=== PATIENT | female | born 1980 | race Caucasian/White ===

== ENCOUNTER 2016-11-08 21:39 | Emergency (ER) | payer OTHER, MEDICAID ==
[2016-11-08 21:32] VITALS: BP 139/103; BMI 47.2
--- NOTE | 2016-11-08 23:48 | DR.GENAD ---
HPI - PCP Primary Care Physician: gerardo hudson - Complaint/Symptoms Chief Complaint:: pt states" i have a abcess on the lip of my lady parts its been there for 2 months but it started hurting me after sex this morning" - Source History Provided: Patient - Mode of Arrival Mode of Arrival: Ambulatory - Timing Onset of Chief Complaint: 09/09/16 PMH - PMH Past Medical History: Yes Past Medical History: Anxiety, Depression, Hypertension, Hypothyroidism, Seizures Past Surgical History: Yes Surgical History: Appendectomy, Weight Loss Surgery - Family History History of Family Medical Conditions: Yes Family Medical History: Diabetes Mellitus, Cancer, Coronary Artery Disease, Heart Failure, Hypertension - Social History Alcohol Use: None Do you use any recreational Drugs:: No Lives With: Family Lives Where: Home - infectious screening In the last 2 months have you had wt loss of >10#?: NO Have you had fever, night sweats or hemotysis?: No Have you traveled outside the country in the last 6 months?: No Isolation: Standard ROS - Review of Systems Constitutional: No Symptoms Reported Eyes: No Symptoms Reported ENTM: No Symptoms Reported Respiratoy: No Symptoms Reported Cardiovascular: No Symptoms Reported Gastrointestinal/Abdominal: No Symptoms Reported Genitourinary: No Symptoms Reported Neurological: No Symptoms Reported Musculoskeletal: No Symptoms Reported Integumentary: No Symptoms Reported Hematologic/Lymphatic: No Symptoms Reported Endocrine: No Symptoms Reported Psychiatric: No Symptoms Reported All Other Systems: Reviewed and Negative PE - Vital Signs Vitals: Temperature 98.4 F Pulse Rate 84 Respiratory Rate 18 Blood Pressure 139/103 O2 Sat by Pulse Oximetry 100 - General Limitations: No Limitations General Appearance: Alert, In No Apparent Distress - Head Head Exam: Normal Inspection, Atraumatic - Eyes Eye exam: Normal Appearance, PERRL, EOMI - ENT ENT Exam: Normal Exam External Ear Exam: Normal External Inspection TM/Canal Exam: Bilateral Normal Nose Exam: Normal Nose Exam Mouth Exam: Normal Inspection Throat Exam: Normal Inspection - Neck Neck Exam: Normal Inspection - Chest Chest Inspection: Normal Inspection - Respiratory Respiratory Exam: Normal Lung Sounds Bilat Respiratory Exam: Bilateral Clear to Auscultation - Cardiovascular Cardiovascular Exam: Regular Rate, Normal Rhythm - Abdominal Exam Abdominal Exam: Normal Inspection, Normal Bowel Sounds Abdominal Tenderness: negative: RUQ, RLQ, LUQ, LLQ, Epigastrium, Suprapubic, Diffuse, Mild, Moderate, Severe, Other - Extremities Extremities Exam: Normal Inspection - Back Back Exam: Normal Inspection - Neurologic Neurological Exam: Alert, Oriented X3, CN II-XII Intact - Psychiatric Psychiatric Exam: Normal Affect, Normal Mood - Skin Skin Exam: Warm, Dry, Intact - Other Exam Other Exam: Vaginal os, inferior right labia a tender nodule, non erythematous c/w bartholin glands cyst - Diagnosis Discharge Problem: Bartholin gland cyst - Discharge Plan Condition: Stable - Follow ups/Referrals Follow ups/Referrals: ANTOINE HUDSON [Primary Care Provider] - 3 days - Instructions
== END 2016-11-08 23:59 | disposition home or self-care (01) ==
LOC: ER 21:39
DX: N75.0 Cyst of Bartholin's gland (principal)
CPT/HCPCS: 99281

== ENCOUNTER 2017-10-26 18:14 | Emergency (ER) | payer OTHER, MEDICAID ==
[2017-10-26 18:18] VITALS: BMI 47.1
[2017-10-26] MEDS ORDERED: NS 1000 ML 1,000 ML IV ONE (18:52)
--- NOTE | 2017-10-26 18:58 | DR.GENAD ---
HPI - PCP Primary Care Physician: MICAH CARDOSOP - HPI Comment HPI Comment: Symptoms started as RUQ abd pain that has become generalized aver the past few days and radiates around to back on both sides. Little recent stool output per pt. Mother s/p colon CA and pt concerned this is what she may have. S/P hannah, s/p appy. Took some left over Bactrim at home with no improvement. Also with low grade fever and headache. - Complaint/Symptoms Chief Complaint:: PT. C/O BILATERAL FLANK PAIN THAT RADIATES TO LOWER BACK. PT. STATES SHE HAS BEEN IN THE BED FOR 5 DAYS. PT. C/O NAUSEA, FATIGUE, DECREASED APPEPTITE, AND CONSTIPATION. DENIES URNIARY SYMPTOMS. - Source History Provided: Patient - Mode of Arrival Mode of Arrival: Ambulatory - Timing Onset of Chief Complaint: 10/12/17 <THEE VERDUGO - Last Filed: 10/26/17 19:51> PMH - PMH Past Medical History: Yes Past Medical History: Anxiety, Depression, Headaches, Hypertension, Hypothyroidism, Seizures Past Surgical History: Yes Surgical History: Appendectomy, Weight Loss Surgery, Other Past Surgical History Comment: LAP BAND - Family History History of Family Medical Conditions: Yes Family Medical History: Diabetes Mellitus, Cancer, Coronary Artery Disease, Heart Failure, Hypertension - Social History Does patient currently use any type of tobacco product: Yes Have you used tobacco products in the last 12 months: Yes Type of Tobacco Use: Cigarettes Does any household member use tobacco: No Alcohol Use: None Do you use any recreational Drugs:: No Lives With: Family Lives Where: Home - infectious screening In the last 2 months have you had wt loss of >10#?: NO Have you had fever, night sweats or hemotysis?: No Have you traveled outside the country in the last 6 months?: No Isolation: Standard <THEE VERDUGO - Last Filed: 10/26/17 19:51> ROS - Review of Systems Constitutional: Fever, Malaise, Weakness, Fatigue, Loss of Appetite Eyes: No Symptoms Reported ENTM: No Symptoms Reported Respiratoy: Dry Cough Cardiovascular: No Symptoms Reported Gastrointestinal/Abdominal: See HPI, Abdominal Pain, Constipation, Nausea Genitourinary: No Symptoms Reported Neurological: No Symptoms Reported Musculoskeletal: Back Pain Integumentary: No Symptoms Reported Hematologic/Lymphatic: No Symptoms Reported Endocrine: No Symptoms Reported Psychiatric: No Symptoms Reported All Other Systems: Reviewed and Negative <THEE VERDUGO - Last Filed: 10/26/17 19:51> PE - General Limitations: No Limitations General Appearance: Alert, In No Apparent Distress - Head Head Exam: Normal Inspection - Eyes Eye exam: Normal Appearance - ENT ENT Exam: Normal Exam - Neck Neck Exam: Full ROM, Trachea Midline - Respiratory Respiratory Exam: Normal Lung Sounds Bilat. negative: Accessory Muscle Use Respiratory Exam: Bilateral Clear to Auscultation - Cardiovascular Cardiovascular Exam: Normal Rhythm, Tachycardia, Normal Heart Sounds - Abdominal Exam Abdominal Exam: Normal Bowel Sounds, Soft, Tenderness (mild generalized TTP, nothing focal). negative: Distention, Guarding, Rebound, Mass, Pulsatile Mass Abdominal Tenderness: Diffuse, Mild - Extremities Extremities Exam: Normal Inspection - Neurologic Neurological Exam: Alert, Oriented X3 - Psychiatric Psychiatric Exam: Normal Affect, Normal Mood - Skin Skin Exam: Warm. negative: Rash <THEE EVRDUGO - Last Filed: 10/26/17 19:51> - Vital Signs Vitals: Temperature 98.4 F Pulse Rate [Left Brachial] 76 Pulse Rate 110 Respiratory Rate 18 Blood Pressure [Left Arm] 134/82 Blood Pressure 141/83 O2 Sat by Pulse Oximetry 100 MDM - Differential Diagnosis Differential Diagnosis: ABDOMINAL PAIN, BILATERAL FLANK PAIN <MINDY WALTON - Last Filed: 10/27/17 01:39> Course - Treatment Treatment: SEE ORDERS. - Education/Counseling Education/Counseling: Patient, Education Educated On: Diagnosis, Needs for Follow Up <MINDY WALTON - Last Filed: 10/27/17 01:39> ROR - Labs Reviewed Laboratory Results Reviewed?: Yes Result Diagrams: 10/26/17 18:59 10/26/17 18:59 - XRAY XRAY Interpreted by: Radiologist XRAY Findings: REPORT DISCUSS WITH PATIENT. <MINDY WALTON - Last Filed: 10/27/17 01:39> - Labs Reviewed Laboratory: WBC 10.2 X10^3/uL (3.6-10.0) H 10/26/17 18:59 RBC 4.78 X10^6/uL (3.5-5.4) 10/26/17 18:59 Hgb 14.9 g/dL (12.0-16.0) 10/26/17 18:59 Hct 42.5 % (36.0-47.0) 10/26/17 18:59 MCV 89.0 fL (80.0-100.0) 10/26/17 18:59 MCH 31.1 pg (27.0-34.0) 10/26/17 18:59 MCHC 34.9 g/dL (33.0-35.0) 10/26/17 18:59 RDW 14.4 % (11.6-16.5) 10/26/17 18:59 Plt Count 383 X10^3/uL (150.0-450.0) 10/26/17 18:59 MPV 8.2 fL (7.4-11.0) 10/26/17 18:59 Neut % (Auto) 70.3 % (42.0-75.0) 10/26/17 18:59 Lymph % (Auto) 20.4 % (21.0-51.0) L 10/26/17 18:59 [place] % (Auto) 8.1 % (0.0-13.0) 10/26/17 18:59 Eos % (Auto) 0.6 % (0.9-2.9) L 10/26/17 18:59 Baso % (Auto) 0.6 % (0.2-1.0) 10/26/17 18:59 Neut # (Auto) 7.2 x10^3/uL (2.2-4.8) H 10/26/17 18:59 Lymph # (Auto) 2.1 X10^3/uL (1.3-2.9) 10/26/17 18:59 [place] # (Auto) 0.8 x10^3/uL (0.3-0.8) 10/26/17 18:59 Eos # (Auto) 0.1 x10^3/uL (0.0-0.2) 10/26/17 18:59 Baso # (Auto) 0.1 X10^3/uL (0.0-0.1) 10/26/17 18:59 Absolute Nucleated RBC 0.0 /100WBC 10/26/17 18:59 Sodium 136 mmol/L (136-145) 10/26/17 18:59 Corrected Sodium TNP 10/26/17 18:59 Potassium 3.8 mmol/L (3.5-5.1) 10/26/17 18:59 Chloride 100 mmol/L (98-107) 10/26/17 18:59 Carbon Dioxide 27.1 mmol/L (21-32) 10/26/17 18:59 BUN 10 mg/dL (7-18) 10/26/17 18:59 Creatinine 1.02 mg/dL (0.55-1.02) 10/26/17 18:59 Est GFR (MDRD) Af Amer > 60 (>60) 10/26/17 18:59 Est GFR (MDRD) Non-Af > 60 (>60) 10/26/17 18:59 Glucose 103 mg/dL (65-99) H 10/26/17 18:59 Calcium 8.7 mg/dL (8.5-10.1) 10/26/17 18:59 Corrected Calcium TNP 10/26/17 18:59 Magnesium 1.8 mg/dL (1.7-2.9) 10/26/17 18:59 Total Bilirubin 0.50 mg/dL (0.2-1.0) 10/26/17 18:59 AST 14 Units/L (15-37) L 10/26/17 18:59 ALT 21 Units/L (12-78) 10/26/17 18:59 Alkaline Phosphatase 90 Units/L (46-116) 10/26/17 18:59 Total Protein 7.8 g/dL (6.4-8.2) 10/26/17 18:59 Albumin 3.9 g/dL (3.4-5.0) 10/26/17 18:59 Globulin 3.9 g/dL (2.5-4.5) 10/26/17 18:59 Albumin/Globulin Ratio 1.0 Ratio (1.1-2.1) L 10/26/17 18:59 Amylase 38 Units/L (25-115) 10/26/17 18:59 Lipase 85 Units/L (73-393) 10/26/17 18:59 HCG, Qual Negative <10 mIU/mL 10/26/17 18:59 Specimen Type Clean catch urine 10/26/17 19:25 Urine Color Yellow (YELLOW) 10/26/17 19:25 Urine Appearance Clear (CLEAR) 10/26/17 19:25 Urine pH 6.0 (5.0 - 8.0) 10/26/17 19:25 Ur Specific [place] 1.025 (1.000-1.030) 10/26/17 19:25 Urine Protein Negative (NEGATIVE) 10/26/17 19:25 Urine Glucose (UA) Negative (NEGATIVE) 10/26/17 19:25 Urine Ketones Negative (NEGATIVE) 10/26/17 19:25 Urine Occult Blood 2+ (NEGATIVE) 10/26/17 19:25 Urine Nitrite Negative (NEGATIVE) 10/26/17 19:25 Urine Bilirubin Negative (NEGATIVE) 10/26/17 19:25 Urine Urobilinogen Normal (NORMAL) 10/26/17 19:25 Ur Leukocyte Esterase Negative (NEGATIVE) 10/26/17 19:25 Urine RBC 2-4 /HPF (NONE SEEN) 10/26/17 19:25 Urine WBC 1-3 /HPF (NONE SEEN) 10/26/17 19:25 Ur Squamous Epith Cells Moderate /HPF (NEGATIVE) 10/26/17 19:25 Urine Bacteria Trace /HPF (NEGATIVE) 10/26/17 19:25 Urine Mucus Few /HPF (NEGATIVE) 10/26/17 19:25 Ur Culture Indicated? No/not indicated 10/26/17 19:25 <THEE VERDUGO - Last Filed: 10/26/17 19:51> <MINDY WALTON - Last Filed: 10/27/17 01:39> - Diagnosis Discharge Problem: Back pain, Pain, flank, bilateral, Abdominal pain - Discharge Plan Disposition: HOME, SELF-CARE Condition: Stable Prescriptions: Cyclobenzaprine HCl [FLEXERIL 10 MG *] 10 mg PO TID PRN #20 tab PRN Reason: Ibuprofen [MOTRIN TAB 600 MG *] 600 mg PO TID PRN #30 tab PRN Reason: Pain/Inflammation - Follow ups/Referrals Follow ups/Referrals: ANTOINE STOUT [Primary Care Provider] - 3 days - Instructions Instructions: Abdominal Pain, Adult, [id number], Musculoskeletal Pain, Flank Pain, [id number], Back Pain, Adult, [id number] Additional Instructions: RETURN TO ED IF WORSE.
[2017-10-26] MEDS ORDERED: ZOFRAN INJ 4 MG VIAL IVP ONE (19:02)
[2017-10-26] MEDS ORDERED: TORADOL 30 MG VIAL IVP ONE (19:03)
[2017-10-26] MEDS ORDERED: NS 1000 ML 1,000 ML ONE (19:05)
[2017-10-26] MEDS ORDERED: ZOFRAN INJ 4 MG VIAL ONE (19:06)
[2017-10-26] MEDS ORDERED: TORADOL 30 MG VIAL ONE (19:06)
[2017-10-26 19:15] LABS: BASOPHILS # (AUTO) 0.1 X10^3/uL (0.0-0.1); BASOPHILS % (AUTO) 0.6 % (0.2-1.0); EOSINOPHILS # (AUTO) 0.1 x10^3/uL (0.0-0.2); EOSINOPHILS % (AUTO) 0.6 % (0.9-2.9); HEMATOCRIT 42.5 % (36.0-47.0); HEMOGLOBIN 14.9 g/dL (12.0-16.0); LYMPHOCYTES # (AUTO) 2.1 X10^3/uL (1.3-2.9); LYMPHOCYTES % (AUTO) 20.4 % (21.0-51.0); MEAN CORPUSCULAR HEMOGLOBIN 31.1 pg (27.0-34.0); MEAN CORPUSCULAR HGB CONC 34.9 g/dL (33.0-35.0); MEAN PLATELET VOLUME 8.2 fL (7.4-11.0); MONOCYTES # (AUTO) 0.8 x10^3/uL (0.3-0.8); MONOCYTES % (AUTO) 8.1 % (0.0-13.0); NEUTROPHILS # (AUTO) 7.2 x10^3/uL (2.2-4.8); NEUTROPHILS % (AUTO) 70.3 % (42.0-75.0); PLATELET COUNT 383 X10^3/uL (150.0-450.0); RED BLOOD COUNT 4.78 X10^6/uL (3.5-5.4); RED CELL DISTRIBUTION WIDTH 14.4 % (11.6-16.5); WHITE BLOOD COUNT 10.2 X10^3/uL (3.6-10.0)
[2017-10-26 19:20] LABS: SERUM PREGNANCY TEST, QUAL NEGATIVE <10 mIU/mL
[2017-10-26 19:23] LABS: ALANINE AMINOTRANSFERASE 21 Units/L (12-78); ALBUMIN 3.9 g/dL (3.4-5.0); ALKALINE PHOSPHATASE 90 Units/L (46-116); AMYLASE 38 Units/L (25-115); ASPARTATE AMINO TRANSFERASE 14 Units/L (15-37); BLOOD UREA NITROGEN 10 mg/dL (7-18); CALCIUM 8.7 mg/dL (8.5-10.1); CARBON DIOXIDE 27.1 mmol/L (21-32); CHLORIDE 100 mmol/L (98-107); CREATININE 1.02 mg/dL (0.55-1.02); LIPASE 85 Units/L (73-393); MAGNESIUM 1.8 mg/dL (1.7-2.9); SODIUM 136 mmol/L (136-145); TOTAL PROTEIN 7.8 g/dL (6.4-8.2); eGFR BLACK RACES > 60 (>60); eGFR NON BLACK RACES > 60 (>60)
[2017-10-26] MEDS ORDERED: NS 100 ML IV 100 ML IV ONE (19:30)
[2017-10-26 19:43] LABS: BILIRUBIN,URINE NEGATIVE (NEGATIVE); BLOOD/HEMOGLOBIN,URINE 2+ (NEGATIVE); GLUCOSE, URINE NEGATIVE (NEGATIVE); KETONES,URINE NEGATIVE (NEGATIVE); LEUKOCYTE ESTERASE ,URINE NEGATIVE (NEGATIVE); NITRITES,URINE NEGATIVE (NEGATIVE); PROTEIN,URINE NEGATIVE (NEGATIVE); UROBILINOGEN,URINE NORMAL (NORMAL)
[2017-10-26 19:51] LABS: APPEARANCE,URINE CLEAR (CLEAR); BACTERIA,URINE TRACE /HPF (NEGATIVE); COLOR,URINE YELLOW (YELLOW); SQUAMOUS EPITHELIAL CELL,UR MODERATE /HPF (NEGATIVE)
[2017-10-26 19:52] LABS: MUCUS,URINE FEW /HPF (NEGATIVE)
--- NOTE | 2017-10-26 20:04 | CT ---
CT OF THE ABDOMEN AND PELVIS WITH CONTRAST HISTORY: Bilateral flank pain Comparison: None Technique: Multiple axial images of the abdomen and pelvis were obtained from the lung bases to the pubic symphy sis follow the administration of IV contrast as well as oral contrast. Dose reduction techniques inc luding Automated Exposure Control (AEC) and adjustment of mA and kV were utlized. Findings: The heart is normal in size. There is no pericardial effusion. Lung bases are clear without focal con solidation, pleural effusion or pneumothorax. Liver and spleen are normal in size, enhancement characteristics and contour. No focal lesions. The p ortal vein is patent. No ductal dilitation. Gallbladder is present. No calcified gallstones or gallbl adder wall thickening. The pancreas is unremarkable. Adrenal glands are normal. Small 2 mm nonobstruc ting right renal stone. No hydronephrosis. Status post gastric bypass. Fat containing umbilical herni a.. No bowel obstruction or inflammation. No abnormal appearing mesenteric or retroperitoneal lymph node s. No free fluid or fluid collections. The bladder is normal in appearance. Uterus appears to be present. No free fluid or abnormal pelvic l ymph nodes. No aggressive osseous lesions. IMPRESSION: 1. No definite source of patient's bilateral flank pain is identified. 2. Tiny 2 mm nonobstructing right renal stone. Reported By:
[2017-10-26 21:34] VITALS: BP 134/82
== END 2017-10-26 21:35 | disposition home or self-care (01) ==
LOC: ER 18:26
DX: N20.0 Calculus of kidney (principal); R10.84 Generalized abdominal pain; M54.5 Low back pain
CPT/HCPCS: 36415; 74177; 80053; 81001; 82150; 83690; 83735; 84703; 85025; 96365; 96374; 96375; 99282; 99283; A4216; A4222; J1885; J2405